=== PATIENT | female | born 1940 | race Caucasian/White ===

== ENCOUNTER 2017-03-28 05:32 | Outpatient (CLI) | payer MEDICARE, OTHER ==
[~2017-03-28] VITALS: Ht 167.6 cm; Wt 66.2 kg
[~2017-03-28 05:32] MED LIST: ASCO-262 PO; ASCO500T20 PO; BILB80CA PO; CALC-656 PO; CEPH500C PO; CURCUMIN PO; CYAN50TA PO; HYDR-34 PO; IODI150T PO; KRIL1CAP PO; MAGN100T3 PO; MULT1CAP27 PO; OMEG-53 PO; POTA99TA15 PO; PRD20T PO; VITA1CAP59 PO; [UNRECOGNIZED DRUG - OTHER] PO; [UNRECOGNIZED DRUG - OTHER] PO
[2017-03-28] MEDS ORDERED: LORA10TA76 PO (10:18)
[2017-03-28] MEDS ORDERED: ASPI-586 PO (10:18)
== END 2017-03-28 10:24 ==
LOC: PREOP 05:32
PROVIDERS: ATTEND Surgery
DX: Z01.818 Encounter for other preprocedural examination (principal); K40.90 Unilateral inguinal hernia, without obstruction or gangrene, not specified as recurrent

== ENCOUNTER 2017-04-04 06:05 | Day surgery (SDC) | payer MEDICARE, OTHER ==
[2017-04-04] VITALS (8 sets, daily range): BP systolic 119–172; BP diastolic 57–92
[~2017-04-04] VITALS: Ht 167.6 cm; Wt 66.2 kg
[~2017-04-04 06:05] MED LIST changes: +ASPI-586 PO; +LORA10TA76 PO
[2017-04-04] MEDS ORDERED: fentaNYL INJECTION 100 MCG/2 ML AMP ONE ×2 (06:37→10:22)
[2017-04-04] MEDS ORDERED: LACTATED RINGERS 1,000 ML IV ONE (06:37)
[2017-04-04] MEDS ORDERED: DEXAMETHASONE PF 10 MG/ML (DECADRON) VIAL ONE (06:37)
[2017-04-04] MEDS ORDERED: proPOfol 200 MG/20 ML (DIPRIVAN) VIAL IV ONE (06:37)
[2017-04-04] MEDS ORDERED: SEVOFLURANE (ULTANE) 15 ML INHAL SOLN ONE ×7 (06:37→09:56)
[2017-04-04] MEDS ORDERED: HURRICAINE EXT TUBE (BENZOCAINE) ONE (06:37)
[2017-04-04] MEDS ORDERED: LIDOCAINE PF 2% 5 ML (XYLOCAINE) VIAL ONE ×2 (06:37→06:43)
[2017-04-04] MEDS ORDERED: ONDANSETRON 4 MG/2 ML (SDV) Z0FRAN ONE (06:38)
[2017-04-04] MEDS ORDERED: MIDAZOLAM 2 MG/2 ML (VERSED) VIAL ONE (06:38)
[2017-04-04] MEDS ORDERED: ONDANSETRON 4 MG/2 ML (SDV) Z0FRAN IV ONE (06:45)
[2017-04-04] MEDS ORDERED: MIDAZOLAM 2 MG/2 ML (VERSED) VIAL IV ONE (06:45)
[2017-04-04] MEDS ORDERED: FAMOTIDINE 20MG/2ML IV (PEPCID) IV ONE (06:45)
[2017-04-04] MEDS: LACTATED RINGERS 1,000 ML IV PRN ×2 (07:01→09:00)
[2017-04-04] MEDS ORDERED: BUP/EPI 0.5% 1:200,000 (MARCAINE) 10ML VIAL IJ ONE (07:05)
--- NOTE | 2017-04-04 07:57 | Progress Note-Pre Operative ---
Pre-Operative Progress Note H&P Reviewed The H&P was reviewed, patient examined and no changes noted. Date Seen by Provider: Mar 26, 2017 Time Seen by Provider: 10:55 Date H&P Reviewed: Apr 04, 2017 Time H&P Reviewed: 07:57 Pre-Operative Diagnosis: right inguinal hernia BONILLA OG MD Apr 04, 2017 7:57 am
[2017-04-04] MEDS ORDERED: ceFAZolin 1,000 MG (ANCEF) VIAL ONE (08:17)
[2017-04-04] MEDS ORDERED: NS (IVPB) 50 ML ONE (08:18)
[2017-04-04] MEDS ORDERED: ceFAZolin 1 GM/NS 50 ML IVPB IV ONE ×2 (08:45)
[2017-04-04] MEDS ORDERED: ESMOLOL 100 MG/10 ML (BREVIBLOC) VIAL ONE (08:53)
--- NOTE | 2017-04-04 10:01 | Operative Report ---
Operative Report Date of Procedure/Surgery Apr 04, 2017 Surgeon (s) BONILLA OG MD Chief Of Surgery (s): not applicable Post-Operative Diagnosis right femoral hernia Procedure Performed robotic assisted repair of right femoral hernia with mesh Description of Procedure Anesthesia Type: General Estimated blood loss (mL): minimal Specimen(s) collected/removed none Description of the Procedure Indication for procedure: This lady presented with what appeared to be an inguinal hernia. But, as would be described in the operative report, intraoperatively, a right femoral hernia was encountered. She was offered minimally invasive repair with robotic assistance and mesh reinforcement. Informed consent was obtained after reviewing the operative details and complications of hematoma, infection of the mesh, recurrence of the hernia and cardiorespiratory from respiratory dysfunction. Description of the procedure: She was placed supine on the operative table and general anesthesia induced using an endotracheal tube. A gram of Ancef was administered intravenously as prophylaxis against wound infection. Sequential compression devices were placed around her legs, to minimize the risk of venous thrombosis. A Chao catheter was placed to decompress the bladder during surgery. It was removed at the end of the operation. Abdomen was prepared and draped in the usual sterile manner. A suprapubic incision was made and pneumoperitoneum established using a Veress needle. Intra -abdominal pressure was maintained at 15 mmHg, using carbon dioxide insufflation. A 12 mm trocar was placed and anatomy visualized using the high definition, 3-dimensional laparoscope associated with da REMOTV system. The hernia was found to be in relation to the femoral canal. Under direct view, I placed an 8 mm cannula over each side of the abdomen and the patient was turned into steep Trendelenburg position, to facilitate displacement of loops of bowel out of the pelvis. The robotic system was then docked in place. Peritoneum was incised laterally, extending across toward the median umbilical ligament. Pre-peritoneal space was entered and the inferior epigastric vessels were preserved.Ruben's ligament was identified, following to the revelation of a femoral hernia. The contents were made up of extra peritoneal fat and reduced out of the femoral canal. The medial aspect of the femoral canal was obliterated by using 2-0 V-loc suture without constricting the femoral vein. preperitoneal space was then reinforced with the polypropylene mesh measuring 8 x 8 cm in size. It was secured to Ruben's ligament and the lateral abdominal musculature using 2-0Vicryl suture with the robotic assistance. Intra-abdominal pressure was reduced to 11 mmHg, to facilitate approximating the peritoneum without tension. This was accomplished using a 2-0V LOC suture with robotic assistance. Hemostasis was satisfactory and the operation concluded. The fascia over the supraumbilical incision was closed using #1 Vicryl. Skin incisions were closed using 4-0 Vicryl, in a subcuticular fashion. 0.25 percent Marcaine with epinephrine was infiltrated along the incisions, both preemptively and at the conclusion of the operation. She tolerated the procedure well, was extubated in the operating room and taken to the recovery room in a stable condition. Findings of the Procedure see operative report Allergies and Home Medications Allergies Coded Allergies: pneumococcal 7-valent conjugate to (Verified Allergy, Intermediate, RASH, 08/30/15) Severe localized swelling, heat, tenderness, and redness after Prevnar 23 immunization Sulfa (Sulfonamide Antibiotics) (Verified Adverse Reaction, Unknown, GI UPSET, 01/12/14) bumetanide (Verified Adverse Reaction, Unknown, GI UPSET, 01/12/14) ciprofloxacin (Verified Adverse Reaction, Unknown, GI UPSET, 01/12/14) codeine (Verified Adverse Reaction, Unknown, GI UPSET, 01/12/14) diclofenac (Verified Adverse Reaction, Unknown, GI UPSET, 01/12/14) ibuprofen (Verified Adverse Reaction, Unknown, GI UPSET, 01/12/14) methylprednisolone (Verified Adverse Reaction, Unknown, GI UPSET, 01/12/14) penicillin V (Verified Adverse Reaction, Unknown, GI UPSET, 01/12/14) sulfamethoxazole (Verified Adverse Reaction, Unknown, GI UPSET, 01/12/14) telithromycin (Verified Adverse Reaction, Unknown, GI UPSET, 01/12/14) tetracycline (Verified Adverse Reaction, Unknown, GI UPSET, 01/12/14) trimethoprim (Verified Adverse Reaction, Unknown, GI UPSET, 01/12/14) Home Medications Ascorbic Acid 500 Mg Tablet, 500 MG PO BID, (Reported) Aspirin 81 Mg Tablet.dr, 81 MG PO EVERY OTHER DAY, (Reported) Bilberry Fruit Extract 80 Mg Capsule, 80 MG PO DAILY, (Reported) Cyanocobalamin 50 Mcg Tablet, 50 MCG PO DAILY, (Reported) Krill/Om3/Dha/Epa/Om6/Lip/Astx 1 Each Capsule, 1 EACH PO DAILY, (Reported) Loratadine 10 Mg Tablet, 10 MG PO DAILY, (Reported) Magnesium Amino Acid Chelate 100 Mg Tablet, 100 MG PO TID, (Reported) Multivitamins 1 Each Capsule, 1 TAB PO DAILY, (Reported) Potassium Gluconate 99 Mg Tablet, 99 MG PO BID, (Reported) Vitamin B Complex 1 Cap Capsule, 1 CAP PO BID, (Reported) [Curcumin] , 1 TAB PO BID, (Reported) [Elderberry D3 Fense] , 2 TAB PO BID, (Reported) [Zymactive] , 1 TAB PO DAILY, (Reported) BONILLA OG MD Apr 04, 2017 10:01 am
[2017-04-04] MEDS ORDERED: TRAM50TA2 PO (10:02)
--- NOTE | 2017-04-04 10:03 | Discharge Inst-Simple/Standard ---
Discharge Inst-Standard Discharge Medications New, Converted or Re-Newed RX: RX on Chart Patient Instructions/Follow Up Plan of Care/Instructions/FU: Band-Aids off in 48 hours. Incentive spirometry. Follow-up in 4 weeks. Activity as Tolerated: No Goal: no lifting or pushing over 10 pounds Discharge Diet: No Restrictions BONILLA GO MD Apr 04, 2017 10:03 am
[2017-04-04] MEDS: fentaNYL INJECTION 100 MCG/2 ML AMP IVP PRN ×2 (10:29→10:37)
[2017-04-04] MEDS ORDERED: ONDANSETRON 4 MG/2 ML (SDV) Z0FRAN IVP ONE (11:45)
[2017-04-04] MEDS ORDERED: fentaNYL INJECTION 100 MCG/2 ML AMP IVP ONE (11:50)
[2017-04-04] MEDS ORDERED: PROMETHAZINE INJ 25 MG/ML (PHENERGAN) AMP ONE (14:27)
[2017-04-04] MEDS ORDERED: PROMETHAZINE INJ 25 MG/ML (PHENERGAN) AMP IVP ONE (14:30)
[2017-04-04] MEDS ORDERED: METOCLOPRAMIDE INJ 10 MG/2 ML (REGLAN) IVP PRN (15:45)
[2017-04-04] MEDS ORDERED: fentaNYL INJECTION 100 MCG/2 ML AMP IVP PRN (15:45)
[2017-04-05 04:00] VITALS: BP 132/66
[2017-04-05 08:00] VITALS: BP 150/69
--- NOTE | 2017-04-05 12:27 | Progress Note-Standard ---
Standard Progress Note Progress Notes/Assess & Plan Date Seen by Provider: Apr 05, 2017 Time Seen by Provider: 11:52 Progress/Assessment & Plan doing well. Pain control adequate. No nausea. Tolerating diet. Could be discharged home Final Diagnosis right femoral hernia. Postoperative nausea and vomiting. BONILLA OG MD Apr 05, 2017 12:27 pm
== END 2017-04-05 13:05 | disposition home or self-care (01) ==
LOC: SDC 06:05 → 4TH 16:26 → SDC 04-05 13:05
PROVIDERS: ATTEND Surgery
DX: K41.90 Unilateral femoral hernia, without obstruction or gangrene, not specified as recurrent (principal); G62.9 Polyneuropathy, unspecified; K21.9 Gastro-esophageal reflux disease without esophagitis; K44.9 Diaphragmatic hernia without obstruction or gangrene
CPT/HCPCS: 87081; 94664

== ENCOUNTER → 2017-05-05 | Outpatient (CLI) | payer MEDICARE, OTHER ==
[~2017-05-05] MED LIST changes: +TRAM50TA2 PO
--- NOTE | 2017-05-05 13:34 | Diagnostic Imaging Report ---
Multiplanar multisequence MRI of the thoracic spine performed without intravenous contrast. INDICATION: Enlarging and painful knot felt to the left of the midline in the lower thoracic spine. FINDINGS: There is a marker at the level of the right paraspinal region at T11 level. This is associated with mild to moderate paraspinal muscle atrophy and is adjacent to postsurgical changes in the more inferior levels. The transpedicular screws at T12 vertebral body on the right side appears to project posteriorly into the subcutaneous tissues close of the skin and results in bulge at the skin seen. A tiny subcapsular seroma is seen above this screw. It is uncertain if the bulging screw is related to the patient's symptoms. When compared to CT scan from 05/04/2015, a somewhat similar picture is seen although exact comparison of the position of the screw would be difficult. Overall, the alignment of the posterior spinal line is satisfactory. At the lower thoracic spine, there is a rotational deformity of the spine related to kyphoscoliosis centered in the lumbar spine. The thoracic spine vertebral bodies are preserved in heights. There is disc desiccation at all levels. There is endplate and disc irregularity at T11/T12 level which appears to be chronic with mild associated reactive marrow changes. The spinal cord has normal caliber, contour and signal within the thoracic spine segments. There are multilevel mild disc herniations in the lower thoracic spine with no spinal canal stenosis at any level. At T9/T10, there are prominent perineural cysts at the neural foramina measuring up to 1.2 cm in the right neuroforamen and up to 0.9 cm on the left side at this level. There is bilateral facet arthropathy of moderate degree at T10/T11 level. This is also mild foraminal stenosis on the right side and moderate to severe foraminal stenosis on the left side. The other foramina demonstrate no significant stenosis. IMPRESSION: 1. The palpable area is marked, in the right paraspinal region at T11. No definite underlying lesion is seen exactly at that level. However, at one vertebral body level below that, there is a right transpedicular screw through T12 level with a screw extending posteriorly just deep to the skin layer and causing skin bulge. This appears, however, to be not significantly changed from CT scan of 05/04/2015 although a comparison cannot be very accurate. 2. No spinal canal stenosis at any level is seen in the thoracic spine. 3. There is moderate to severe foraminal stenosis on the left side at the T10/T11 level. Dictated by: Dictated on workstation # [id number]
--- NOTE | 2017-05-05 15:54 | Diagnostic Imaging Report ---
PROCEDURE: MRI lumbar spine. TECHNIQUE: Multiplanar, multisequence MRI of the lumbar spine was performed without contrast. INDICATION: Scoliosis. Patient is feeling a large knot in her back. FINDINGS: There is scoliosis with an S-shaped curve convex to the right around the thoracolumbar junction and convex to the left at the lower lumbar spine centered around the L5 level. There is anterior and posterior fusion hardware seen involving T12-S1 levels. There is a suggestion of bony fusion between vertebral bodies L2/3, L3/4, L4/5, and L5/S1. This is better assessed by CT scan, however. There is also evidence of laminectomy performed at the lumbar spine levels L2 to L5. Susceptibility artifacts from the hardware limit evaluation of the bone marrow signal with no suspicious focal lesion identified. At the palpable area which is marked near the right paraspinal region at the T11 level, there is no definite abnormality. Immediately below this level, however, there is a 0.2 x 0.7 x 2.4 cm oval-shaped lobulated lesion in the subcutaneous fat with a suggestion of fluid component. This could be a postoperative seroma. This is immediately above a transpedicular screw through the right pedicle of T12 that extends to the subcutaneous tissues near the skin. The skin is pushed outward at this level. It is uncertain if this is what the patient is feeling. At T11/12, there is mild disc herniation, and there is facet hypertrophy with no spinal canal stenosis. No foraminal narrowing is seen. The fusion levels from T12/L1 through L5/S1 demonstrate no spinal canal stenosis at any level. Evaluation of the foramina is limited due to susceptibility artifacts from the fusion hardware with no definitive high-grade stenosis. IMPRESSION: 1. Prominent S-shaped scoliosis in the lumbar spine convex to the right in the upper lumbar spine and convex to the left in the lower lumbar spine. 2. There is a fusion hardware with associated susceptibility artifacts. The posterior fusion hardware extends from T12 to L5 bilaterally and involves S1 level on the left. There is also anterior fusion with disc spacers seen involving L2/3, L3/4, L4/5, and L5/S1. 3. The right T12 transpedicular screw extends posteriorly into the subcutaneous tissues just deep to the skin and bulges the skin at that level. Right above this level, there is a small elongated fluid-containing lesion in the subcutaneous fat, which may relate to a postoperative seroma. Dictated by: Dictated on workstation # [id number]
== END ==
LOC: RAD 10:53
PROVIDERS: ATTEND Internal Medicine
DX: M41.26 Other idiopathic scoliosis, lumbar region (principal); M48.04 Spinal stenosis, thoracic region; T84.296A Other mechanical complication of internal fixation device of vertebrae, initial encounter; Z98.1 Arthrodesis status
CPT/HCPCS: 72146; 72148

== ENCOUNTER → 2017-06-09 | Outpatient (CLI) | payer MEDICARE, OTHER ==
--- NOTE | 2017-06-09 20:05 | Diagnostic Imaging Report ---
Bilateral screening mammogram 2D views with tomosynthesis The current study was also evaluated with a Computer Aided Detection (CAD) system. Indication: Screening. No current complaints stated on the questionnaire. COMPARISON: 03/28/16 FINDINGS: The breasts are composed of scattered fibroglandular densities. No suspicious calcifications, mass or architectural distortion seen. Allowing for technique and positional differences, no suspicious change is seen. IMPRESSION: No significant change. ACR BI-RADS Category 2: Benign findings. Result letter will be mailed to the patient. Note: At least 10% of breast cancer is not imaged by mammography. Dictated by: Dictated on workstation # [id number]
== END ==
LOC: RAD 10:50
PROVIDERS: ATTEND Internal Medicine
DX: Z12.31 Encounter for screening mammogram for malignant neoplasm of breast (principal)
CPT/HCPCS: 77067

== ENCOUNTER → 2018-07-23 | Outpatient (CLI) | payer MEDICARE, OTHER ==
--- NOTE | 2018-07-23 12:22 | Diagnostic Imaging Report ---
Indication: Routine screening. Comparison is made to prior mammogram from 06/09/2017 and 03/28/2016. 2-D and 3-D bilateral screening mammography was performed with CAD. Scattered fibroglandular densities are identified bilaterally. No mass or malignant-appearing microcalcifications are seen. The axillae are unremarkable. Impression: BI-RADS category 1 No mammographic features suspicious for malignancy are identified. ACR BI-RADS Category 1: Negative. Result letter will be mailed to the patient. Note: At least 10% of breast cancer is not imaged by mammography. Dictated by: Dictated on workstation # [id number]
--- NOTE | 2018-07-23 15:36 | Diagnostic Imaging Report ---
INDICATION: Postmenopausal screening for osteoporosis. COMPARISON: None. FINDINGS: AP Spine L1-L4: [BMD (g/cm2): ] [T-Score: ] [Z-Score: ] [BMD Previous: ] [BMD % Change: ] LT Hip Neck: [BMD (g/cm2): 0.988] [T-Score: -0.4] [Z-Score: 1.6] LT Hip Total: [BMD (g/cm2):1.054] [T-Score:0.4] [Z-Score: 2.2] [BMD Previous: 0.0] [BMD % Change: 0] RT Hip Neck: [BMD (g/cm2): ] [T-Score: ] [Z-Score: ] RT Hip Total: [BMD (g/cm2): ] [T-score: ] [Z-Score: ] [BMD Previous: ] [BMD % Change: ] *Indicates significant change from prior examination based on 95% confidence level. World Health Organization criteria for BMD interpretation classify patients as Normal (T-score at or above -1.0), Osteopenic (T-score between -1.0 and -2.5) or Osteoporotic (T-score at or below -2.5). LIMITATIONS AND MODIFICATION: Patient's undergone lower back fusion and left hip replacement. FRACTURE RISK (FRAX SCORE): The ten year probability of (%): Major Osteoporotic Fracture: [ ] Hip Fracture: [ ] IMPRESSION: 1. Normal bone mineral density. 2. Baseline examination. 3. See below National Osteoporosis Foundation guidelines on when to potentially initiate pharmacologic therapy. Based on the National Osteoporosis Foundation Guidelines, pharmacologic treatment should be initiated in any of the following, unless clinical conditions suggest otherwise: * Any patient with prior fragility fracture of the hip or vertebrae. A spine fracture indicates 5X risk for subsequent spine fracture and 2X risk for subsequent hip fracture. * Osteoporosis (T-score <-2.5). * Postmenopausal women and men age 50 and older with low bone mass/osteopenia (T-score between -1.0 and -2.5) by DXA and 10-year major osteoporotic fracture greater than 20% or a 10-year probability of hip fracture greater than 3%. These fracture risks are supplied above in the FRAX score, if applicable. * Clinician judgement and/or patient preferences may indicate treatment for people with 10-year fracture probabilities above or below these levels. Dictated by: Dictated on workstation # [id number]
== END ==
LOC: RAD 09:53
PROVIDERS: ATTEND Internal Medicine
DX: Z12.31 Encounter for screening mammogram for malignant neoplasm of breast (principal); Z13.820 Encounter for screening for osteoporosis; M81.0 Age-related osteoporosis without current pathological fracture; Z78.0 Asymptomatic menopausal state
CPT/HCPCS: 77067; 77080

== ENCOUNTER → 2019-08-06 | Outpatient (CLI) | payer MEDICARE, OTHER ==
--- NOTE | 2019-08-09 09:27 | Diagnostic Imaging Report ---
INDICATION: Routine screening. Comparison is made with prior mammogram from 07/23/2018 and 06/09/2017. 2-D and 3-D bilateral screening mammography was performed with CAD. The current study was also evaluated with a Computer Aided Detection (CAD) system. 3-D tomosynthesis was also performed and reviewed. Scattered fibroglandular densities are identified bilaterally. The parenchymal pattern is stable. No mass or malignant appearing microcalcifications are seen. Axillae are unremarkable. IMPRESSION: No mammographic features suspicious for malignancy are identified. ACR BI-RADS Category 1: Negative. Result letter will be mailed to the patient. Note: At least 10% of breast cancer is not imaged by mammography. Dictated by: Dictated on workstation # [id number]
== END ==
LOC: RAD 12:50
PROVIDERS: ATTEND Internal Medicine
DX: Z12.31 Encounter for screening mammogram for malignant neoplasm of breast (principal)
CPT/HCPCS: 77067

== ENCOUNTER → 2020-08-11 | Outpatient (CLI) | payer MEDICARE, OTHER ==
[~2020-08-11] MED LIST changes: -TRAM50TA2 PO; +TRM50T PO
--- NOTE | 2020-08-11 14:10 | Diagnostic Imaging Report ---
INDICATION: Routine screening. Comparison is made prior mammogram 08/06/2019 and 07/23/2018. 2-D and 3-D bilateral screening mammography was performed with CAD. Scattered fibroglandular densities are identified bilaterally. Parenchymal pattern is stable. No mass or malignant appearing microcalcifications are seen. Axillae are unremarkable. IMPRESSION: BI-RADS Category 1 No mammographic features suspicious for malignancy are identified. ACR BI-RADS Category 1: Negative. Result letter will be mailed to the patient. Note: At least 10% of breast cancer is not imaged by mammography. Dictated by: Dictated on workstation # [id number]
== END ==
LOC: RAD 09:56
PROVIDERS: ATTEND Nurse Practitioner Family
DX: Z12.31 Encounter for screening mammogram for malignant neoplasm of breast (principal)
CPT/HCPCS: 77063; 77067

== ENCOUNTER → 2021-08-14 | Outpatient (CLI) | payer MEDICARE, OTHER ==
--- NOTE | 2021-08-14 12:57 | Diagnostic Imaging Report ---
INDICATION: Routine screening. COMPARISON: 08/11/2020 and 08/06/2019. TECHNIQUE: 2D and 3D bilateral screening mammography was performed with CAD. FINDINGS: Scattered fibroglandular densities are identified bilaterally. The parenchymal pattern is stable. No mass or malignant-appearing microcalcifications are seen. The axillae are unremarkable. IMPRESSION: No mammographic features suspicious for malignancy are identified. ACR BI-RADS Category 1: Negative. Result letter will be mailed to the patient. Note: At least 10% of breast cancer is not imaged by mammography. Dictated by: Dictated on workstation # [id number]
== END ==
LOC: RAD 09:45
PROVIDERS: ATTEND Internal Medicine
DX: Z12.31 Encounter for screening mammogram for malignant neoplasm of breast (principal)
CPT/HCPCS: 77063; 77067

== ENCOUNTER → 2022-08-21 | Outpatient (CLI) | payer MEDICARE, OTHER ==
--- NOTE | 2022-08-21 11:00 | Diagnostic Imaging Report ---
INDICATION: Routine screening. COMPARISON: 08/14/2021 and 08/11/2020. TECHNIQUE: 2D and 3D bilateral screening mammography was performed with CAD. FINDINGS: Both breasts are heterogeneously dense, limiting the sensitivity of mammography. The parenchymal pattern is stable. No mass or malignant-appearing microcalcifications are seen. The axillae are unremarkable. IMPRESSION: No mammographic features suspicious for malignancy are identified. ACR BI-RADS Category 1: Negative. Result letter will be mailed to the patient. Note: At least 10% of breast cancer is not imaged by mammography. Dictated by: Dictated on workstation # [id number]
== END ==
LOC: RAD 09:50
PROVIDERS: ATTEND Internal Medicine
DX: Z12.31 Encounter for screening mammogram for malignant neoplasm of breast (principal)
CPT/HCPCS: 77063; 77067